=== PATIENT | female | born 1960 | race American Indian/Alaskan Native ===

== ENCOUNTER 2021-09-30 09:25 | Emergency (ER) | payer MEDICAID ==
[2021-09-30] MEDS ORDERED: KETOROLAC 10 MG TAB PO ONE (09:45)
--- NOTE | 2021-09-30 09:47 | Emergency Department Report ---
ED ENT HPI - General Chief complaint: Dental/Oral Stated complaint: LIPS/TEETH Time Seen by Provider: 09/30/21 09:38 Source: patient Mode of arrival: Ambulatory Limitations: No Limitations - History of Present Illness Initial comments: 61-year-old female with a past medical history of diabetes and hypertension presents to the ER today with complaints of left upper dental pain and jaw swelling. Patient states that she started with a dental pain yesterday, and then this morning when she woke up she noticed that her left cheek was swollen. She reports increased pain to that area. She reports that she has a known "bad tooth" in that area. She does she reports no fever, chills, difficulty opening her mouth, drooling, difficulty breathing or any additional symptoms MD complaint: tooth pain, other (dental pain/jaw swelling ) -: days(s) (1) - Related Data Previous Rx's Medication Instructions Recorded Last Taken Type Acetaminophen/Codeine [Tylenol 1 tab PO Q6H PRN #12 tab 09/30/21 Unknown Rx /Codeine # 3 tab] Clindamycin [Clindamycin CAP] 300 mg PO Q8H #30 cap 09/30/21 Unknown Rx Ketorolac [Toradol] 10 mg PO Q6H PRN #20 09/30/21 Unknown Rx Allergies Allergy/AdvReac Type Severity Reaction Status Date / Time No Known Allergies Allergy Unverified 09/30/21 09:27 ED Dental HPI - General Chief complaint: Dental/Oral Stated complaint: LIPS/TEETH Time Seen by Provider: 09/30/21 09:38 Source: patient Mode of arrival: Ambulatory Limitations: No Limitations - Related Data Previous Rx's Medication Instructions Recorded Last Taken Type Acetaminophen/Codeine [Tylenol 1 tab PO Q6H PRN #12 tab 09/30/21 Unknown Rx /Codeine # 3 tab] Clindamycin [Clindamycin CAP] 300 mg PO Q8H #30 cap 09/30/21 Unknown Rx Ketorolac [Toradol] 10 mg PO Q6H PRN #20 09/30/21 Unknown Rx Allergies Allergy/AdvReac Type Severity Reaction Status Date / Time No Known Allergies Allergy Unverified 09/30/21 09:27 ED Review of Systems ROS: Stated complaint: LIPS/TEETH Other details as noted in HPI Comment: All other systems reviewed and negative ENT: dental pain, other (Left facial swelling) Respiratory: denies: cough, shortness of breath, wheezing Cardiovascular: denies: chest pain, palpitations, dyspnea on exertion, edema, syncope, paroxysmal nocturnal dyspnea Neurological: denies: headache, weakness, paresthesias Psychiatric: denies: anxiety, depression Hematological/Lymphatic: denies: easy bleeding, easy bruising, swollen glands ED Past Medical Hx - Past Medical History Hx Hypertension: Yes Hx Diabetes: Yes Additional medical history: HEART/ CHRONIC PAIN - Surgical History Hx Appendectomy: Yes Additional Surgical History: TUBES TIED/ HERNIA - Medications Home Medications: Home Medications Medication Instructions Recorded Confirmed Last Taken Type Acetaminophen/Codeine [Tylenol 1 tab PO Q6H PRN #12 tab 09/30/21 Unknown Rx /Codeine # 3 tab] Clindamycin [Clindamycin CAP] 300 mg PO Q8H #30 cap 09/30/21 Unknown Rx Ketorolac [Toradol] 10 mg PO Q6H PRN #20 09/30/21 Unknown Rx ED Physical Exam - General Limitations: No Limitations General appearance: alert, in no apparent distress - Expanded Head Exam Expanded 1 - Mild to moderate swelling with slight erythema but no streaking and moderate tenderness to palpation. - Eye Eye exam: Present: normal appearance, PERRL, EOMI. Absent: periorbital swelling, periorbital tenderness Pupils: Present: normal accommodation - ENT ENT exam: Present: mucous membranes moist - Expanded ENT Exam Expanded 1 - Dental Tenderness (Severe dental tenderness with some dental caries noted), Other (There is some gingival swelling, as well as induration and fluctuance but no pointing) Throat exam: Positive: normal inspection - Neck Neck exam: Present: normal inspection, full ROM. Absent: meningismus - Neurological Exam Neurological exam: Present: alert, oriented X3, CN II-XII intact, normal gait - Psychiatric Psychiatric exam: Present: normal affect, normal mood - Skin Skin exam: Present: intact ED Course Vital Signs 09/30/21 09:31 Temperature 99.0 F Pulse Rate 92 H Respiratory 20 Rate Blood Pressure 171/85 O2 Sat by Pulse 98 Oximetry Critical care attestation.: If time is entered above; I have spent that time in minutes in the direct care of this critically ill patient, excluding procedure time. ED Disposition Clinical Impression: Abscess, dental Disposition: HOME / SELF CARE / HOMELESS Is pt being admited?: No Does the pt Need Aspirin: No Condition: Stable Instructions: Dental Abscess Additional Instructions: I recommend that you start taking the clindamycin as prescribed today. You can apply heat over to the left side of your face to help with swelling and pain. Take the Toradol and the Tylenol threes as prescribed to help with pain. I do recommend that you follow-up with dentist, dental list will be provided to you on discharge. Return to the ER if your symptoms worsens or changes in any way. Prescriptions: Clindamycin [Clindamycin CAP] 300 mg PO Q8H #30 cap Ketorolac [Toradol] 10 mg PO Q6H PRN #20 PRN Reason: Pain Acetaminophen/Codeine [Tylenol /Codeine # 3 tab] 1 tab PO Q6H PRN #12 tab PRN Reason: Pain , Severe (7-10) Referrals: PRIMARY CARE, [Referring] - 3-5 Days Time of Disposition: 09:54
[2021-09-30] MEDS ORDERED: CLINDAMYCIN 150 MG CAP PO ONE (10:30)
[2021-09-30 10:33] VITALS: BP 169/87
== END 2021-09-30 10:35 | disposition home or self-care (01) ==
LOC: ED 09:25
DX: K04.7 Periapical abscess without sinus (principal); I10 Essential (primary) hypertension; E11.9 Type 2 diabetes mellitus without complications; Z79.899 Other long term (current) drug therapy; Z98.890 Other specified postprocedural states
CPT/HCPCS: 99282

== ENCOUNTER 2021-10-01 12:42 | Emergency (ER) | payer MEDICAID ==
--- NOTE | 2021-10-01 13:55 | Emergency Department Report ---
ED ENT HPI - General Chief complaint: Dental/Oral Stated complaint: TOOTH ACHE Time Seen by Provider: 10/01/21 13:30 Source: patient Mode of arrival: Ambulatory Limitations: No Limitations - History of Present Illness Initial comments: 61-year-old -[place] female presents to the ER today with complaints of dental pain. Location left upper jaw. Patient was seen here yesterday for similar symptoms. She was diagnosed with dental abscess and patient was started on clindamycin. Patient returns today stating that she still in pain. She was prescribed Toradol and Tylenol threes to take for pain but she states that it has not been helping much. She states that she did take her clindamycin this morning. She reports no fever, no chills, facial redness, difficulty swallowing, trismus, drooling or any additional symptoms. MD complaint: tooth pain, other (jaw swelling ) -: days(s) - Related Data Previous Rx's Medication Instructions Recorded Last Taken Type Acetaminophen/Codeine [Tylenol 1 tab PO Q6H PRN #12 tab 09/30/21 Unknown Rx /Codeine # 3 tab] Clindamycin [Clindamycin CAP] 300 mg PO Q8H #30 cap 09/30/21 Unknown Rx Ketorolac [Toradol] 10 mg PO Q6H PRN #20 09/30/21 Unknown Rx Allergies Allergy/AdvReac Type Severity Reaction Status Date / Time No Known Allergies Allergy Verified 09/30/21 09:56 ED Dental HPI - General Chief complaint: Dental/Oral Stated complaint: TOOTH ACHE Time Seen by Provider: 10/01/21 13:30 Source: patient Mode of arrival: Ambulatory Limitations: No Limitations - Related Data Previous Rx's Medication Instructions Recorded Last Taken Type Acetaminophen/Codeine [Tylenol 1 tab PO Q6H PRN #12 tab 09/30/21 Unknown Rx /Codeine # 3 tab] Clindamycin [Clindamycin CAP] 300 mg PO Q8H #30 cap 09/30/21 Unknown Rx Ketorolac [Toradol] 10 mg PO Q6H PRN #20 09/30/21 Unknown Rx Allergies Allergy/AdvReac Type Severity Reaction Status Date / Time No Known Allergies Allergy Verified 09/30/21 09:56 ED Review of Systems ROS: Stated complaint: TOOTH ACHE Other details as noted in HPI Comment: All other systems reviewed and negative ENT: dental pain. denies: ear pain, throat pain Respiratory: denies: cough, shortness of breath, wheezing Cardiovascular: denies: chest pain, palpitations Gastrointestinal: denies: abdominal pain, nausea, diarrhea, constipation, hematemesis, hematochezia Genitourinary: denies: urgency, dysuria, frequency, hematuria, discharge, abnormal menses, dyspareunia Musculoskeletal: denies: back pain, joint swelling, arthralgia Skin: denies: rash, lesions, change in color, change in hair/nails, pruritus Neurological: denies: headache, weakness, numbness, paresthesias, confusion, abnormal gait, vertigo Psychiatric: denies: anxiety, depression, auditory hallucinations, visual hallucinations, homicidal thoughts, suicidal thoughts Hematological/Lymphatic: denies: easy bleeding, easy bruising, swollen glands ED Past Medical Hx - Past Medical History Previous Medical History?: Yes Hx Hypertension: Yes Hx Diabetes: Yes Additional medical history: HEART/ CHRONIC PAIN - Surgical History Past Surgical History?: Yes Hx Appendectomy: Yes Additional Surgical History: TUBES TIED/ HERNIA. left ankle - Medications Home Medications: Home Medications Medication Instructions Recorded Confirmed Last Taken Type Acetaminophen/Codeine [Tylenol 1 tab PO Q6H PRN #12 tab 09/30/21 Unknown Rx /Codeine # 3 tab] Clindamycin [Clindamycin CAP] 300 mg PO Q8H #30 cap 09/30/21 Unknown Rx Ketorolac [Toradol] 10 mg PO Q6H PRN #20 09/30/21 Unknown Rx ED Physical Exam - General Limitations: No Limitations General appearance: alert, in no apparent distress, obese - Head Head exam: Present: atraumatic, normocephalic - Eye Eye exam: Present: normal appearance, PERRL, EOMI. Absent: periorbital swelling, periorbital tenderness Pupils: Present: normal accommodation - ENT ENT exam: Present: mucous membranes moist - Expanded ENT Exam Expanded Mouth exam: Present: normal external inspection 1 - Dental Tenderness (with associated dental abscess), Other (+dental decay; Left cheek swelling but improved compared to yesterday; No sig facial cellulitis; no periorbital involvement) - Neurological Exam Neurological exam: Present: alert, oriented X3, CN II-XII intact, normal gait - Psychiatric Psychiatric exam: Present: normal affect, normal mood - Skin Skin exam: Present: intact ED Course Vital Signs 10/01/21 13:21 Temperature 99.4 F Pulse Rate 95 H Respiratory 18 Rate Blood Pressure 184/91 [Right] O2 Sat by Pulse 99 Oximetry - I & D Left Upper Jaw Type of Procedure: Simple Site: Gum left upper anterior jaw above tooth 11/12 Blade Size: 19 gauge needle Progress: No anesthesia used. Patient tolerated procedure well without any complication. Moderate amount of pus drained. Critical care attestation.: If time is entered above; I have spent that time in minutes in the direct care of this critically ill patient, excluding procedure time. ED Disposition Clinical Impression: Abscess, dental Disposition: HOME / SELF CARE / HOMELESS Is pt being admited?: No Does the pt Need Aspirin: No Condition: Stable Instructions: Dental Abscess, [id number] Additional Instructions: Continue doing warm salt water rinses or warm compresses. I recommend that you continue taking the clindamycin every 6 hours as prescribed until completion. Continue taking the Tylenol 3 she can take up to 2 tablets every 6 hours and continue taking the Toradol. Follow-up with one of the dentist listed on the dental list. Return to the ER if symptoms changes or worsens in any way. Referrals: PRIMARY CARE, [Referring] - 3-5 Days Time of Disposition: 13:57
[2021-10-01 14:33] VITALS: BP 169/85
== END 2021-10-01 14:29 | disposition home or self-care (01) ==
LOC: ED 12:42
DX: K04.7 Periapical abscess without sinus (principal); I10 Essential (primary) hypertension; E11.9 Type 2 diabetes mellitus without complications; Z79.899 Other long term (current) drug therapy; Z98.890 Other specified postprocedural states
CPT/HCPCS: 99282